=== PATIENT | female | born 1980 | race Caucasian/White ===

== ENCOUNTER → 2016-04-27 | Outpatient (CLI) | payer MEDICAID ==
--- NOTE | 2016-04-27 11:39 | DX ---
Left Foot - 3 Views Indication: Foot pain for 2 weeks. Technique: AP, oblique, and lateral views. Comparison: September 30, 2015. Findings: Soft tissue swelling along the lateral aspect of the fifth metatarsal and fifth metatarsoph alangeal joint has improved since September 2015. The bones of the foot are otherwise normal. No fracture, periosteal reaction or joint space narrowing. A benign punctate calcification along the medial aspec t of the medial sesamoid bone is unchanged. Impression: Negative. No evidence of stress fracture or arthropathy.
== END ==
LOC: BMCIMAGING 10:00
PROVIDERS: ATTEND Podiatrist Foot & Ankle Surgery
DX: M89.8X7 Other specified disorders of bone, ankle and foot (principal); M79.672 Pain in left foot

== ENCOUNTER 2016-09-26 22:43 | Emergency (ER) | payer MEDICAID ==
[2016-09-26 22:51] VITALS: BP 113/60; PULSE 65; RESP 16; TEMP 98.2; O2SAT 95
--- NOTE | 2016-09-26 23:19 | EDPHY ---
H & P <Roxane Sharma - Last Filed: 09/27/16 00:16> Stated Complaint: L leg pain Source: Patient Exam Limitations: No limitations - Personal History LMP (Females 10-55): Hysterectomy Current Tetanus/Diphtheria Vaccine: Yes Current Tetanus Diphtheria and Acellular Pertussis (TDAP): Yes - Medical/Surgical History Hx Asthma: Yes Hx Chronic Respiratory Disease: No Hx Diabetes: No Hx Cardiac Disease: No Hx Renal Disease: No Hx Cirrhosis: No Hx Alcoholism: No Hx HIV/AIDS: No Hx Splenectomy or Spleen Trauma: No Other PMH: hysterectomy, - Social History Smoking Status: Current every day smoker <BrodyHilario - Last Filed: 09/30/16 11:03> HPI/ROS: PHYSICIAN DOCUMENTATION: The patient was evaluated and managed by the Physician Consulting Application Engineer. My co- signature indicates that I have reviewed this chart and I agree with the findings and plan of care as documented. I am the secondary supervising physician. 12:15 a.m.- The patient was stable throughout my shift. DVT study was negative. I feel the patient has a cellulitis from a partially treated foot wound. I will give her an additional course of Augmentin as this helped her symptoms previously. She does have a history of C diff. I have encouraged her to take probiotics. I have discussed warning signs for worsening infection including redness, swelling , fever, pain. If she develops any of the symptoms she is to return to the emergency room or follow up with her primary care doctor. She is in agreement with the plan. (Roxane Sharma) CHIEF COMPLAINT: Left lower extremity erythema and pain HISTORY OF PRESENT ILLNESS: Patient complains of left lower extremity erythema edema pain. This started this morning. This involves the calf of the left leg. It is moderate to severe pain. Difficulty walking on it. It is warm to the touch to her. It is minimally improved with rest. No numbness or tingling. She reports a recent infection of the left lower foot, laterally. She finished a course of Augmentin last week for this. No recent travel or surgery. She has been moving recently. No previous incidence of venous thrombolic event. No other associated complaints or modifying factors. Primary care physician is Dr. Gabbie Machado REVIEW OF SYSTEMS: Ten systems reviewed and are negative unless otherwise noted in the HPI PAST MEDICAL HISTORY: Current right hip strain, left knee pain status post surgical repair in physical therapy FAMILY HISTORY: EXAMINATION General Appearance: Alert, no distress Head: normocephalic, atraumatic Eyes: Pupils equal and round, no conjunctival pallor or injection Respiratory: No retractions or distress. Cardiovascular: Regular rate. Pulses intact distally symmetrically with 2+ DP pulses and 2+ PT pulses. Gastrointestinal: Nondistended Neurological: A&O, nonfocal, antalgic but steady gait Skin: Warm and dry, no rash. There is mild erythema to the left calf. No lacerations or abrasions. There are varicosities of both lower extremities. There is a healing wound wound on the MTP joint of the left foot, laterally. No abscess, induration or erythema of the area. Extremities: Range of motion of the lower extremities is symmetric. There is mild edema and erythema to the left calf. No palpable cord. Negative Shayla. Neurovascular intact distal to the pain and swelling. Psychiatric: Mood and affect normal DIFFERENTIAL DIAGNOSES: Including but not limited to cellulitis, edema, DVT, rash MDM: 11:15 p.m. Left lower extremity erythema, edema pain. Patient is concerned of the possibility of cellulitis and deep vein thrombosis. I have ordered an ultrasound to rule out DVT. I have ordered laboratory studies for the possibility of cellulitis. Her vital signs were well within normal limits. There is excellent blood flow and she is neurovascular intact in the left lower extremity. Resting comfortably in no acute distress. 11:30 p.m. I have discussed the case with Dr. Sharma. DVT study is pending at this time. Laboratory studies are currently being drawn. She is resting comfortably in no acute distress. She is nontoxic and well-appearing. I suspect this is a early cellulitis versus possible DVT or superficial thrombus. She is in no acute distress with neurovascular intact extremities. At this time Dr. Sharma will assume care of the patient. Please see her note for final disposition. SUPERVISION: Patient was evaluated in conjunction with the supervising physician. Please see their note for details. (Hilario Skinner) Constitutional: Initial Vital Signs Temperature (C) 98.2 F 09/26/16 22:48 Heart Rate 65 09/26/16 22:48 Respiratory Rate 16 09/26/16 22:48 Blood Pressure 113/60 09/26/16 22:48 O2 Sat (%) 95 09/26/16 22:48 O2 Delivery Mode Room Air Allergies/Adverse Reactions: lidocaine Allergy (Verified 02/27/16 12:33) Other-Enter Comments shellfish derived Allergy (Verified 09/26/16 22:48) wheat Allergy (Verified 09/26/16 22:48) peanuts Allergy (Uncoded 09/26/16 22:48) Home Medications: Medication Instructions Recorded [place] 5/325 (*) 09/26/16 Amoxicillin/Clavulanate Pot 875 mg PO BID #14 tab 09/27/16 [Augmentin 875 MG TAB (*)] Medical Decision Making - Diagnostics Imaging: Discussed imaging studies w/ call center representative Radiologist, I viewed and interpreted images myself <Roxane Sharma - Last Filed: 09/27/16 00:16> Departure <Roxane Sharma - Last Filed: 09/27/16 00:16> <Hilario Skinner - Last Filed: 09/30/16 11:03> - Departure Disposition: Home, Routine, Self-Care Clinical Impression: Lower extremity pain, Varicose vein of leg, Cellulitis of leg Condition: Good Instructions: Varicose Veins (ED), Leg Edema (ED) Additional Instructions: 1. Follow up with primary care physician 2. Return to ER for worsening pain, redness or swelling 3. Return to the ER for any chest pain or shortness of breath 4. Medications as prescribed as discussed Referrals: Gabbie Machado MD [Primary Care Provider] - As per Instructions Prescriptions: Amoxicillin/Clavulanate Pot [Augmentin 875 MG TAB (*)] 875 mg PO BID #14 tab
[2016-09-26 23:42] LABS: % IMMATURE GRANULYOCYTES 0.5 % (0.0-1.1); ABSOLUTE IMMATURE GRANULOCYTES 0.04 10^3/uL (0.00-0.10); ADD DIFF? NO; ADD MORPH? NO; ADD SCAN? NO; ATYPICAL LYMPHOCYTE FLAG 30 (0-99); FRAGMENT RBC FLAG 0 (0-99); HEMATOCRIT 41.6 % (38.0-47.0); HEMOGLOBIN 14.2 g/dL (12.6-16.3); LEFT SHIFT FLG 0 (0-99); LIPEMIA HEMOLYSIS FLAG 90 (0-99); MEAN CELL HEMOGLOBIN 33.4 pg (27.9-34.1); MEAN CELL HEMOGLOBIN CONCENTR. 34.1 g/dL (32.4-36.7); MEAN CELL VOLUME 97.9 fL (81.5-99.8); MEAN PLATELET VOLUME 9.4 fL (8.7-11.7); PLATELET CLUMPS FLAG 0 (0-99); PLATELET COUNT 243 10^3/uL (150-400); RED BLOOD CELL COUNT 4.25 10^6/uL (4.18-5.33)
[2016-09-26 23:55] LABS: C-REACTIVE PROTEIN 10.9 mg/L (<10.0)
[2016-09-26 23:59] LABS: SEDIMENTATION RATE 0 MM/HR (0-20)
[2016-09-27] MEDS ORDERED: AMOXICILLIN/CLAVULANATE POT 875/125 MG TAB PO ONE (00:16)
[2016-09-27 00:33] LABS: CK-MB INTERPRETATION NEGATIVE (NEGATIVE)
[2016-09-27 00:35] LABS: CREATINE KINASE-MB FRACTION 6.05 ng/mL (0-3.19)
== END 2016-09-27 00:39 | disposition home or self-care (01) ==
DX: I83.92 Asymptomatic varicose veins of left lower extremity (principal); L03.116 Cellulitis of left lower limb; F17.200 Nicotine dependence, unspecified, uncomplicated; J45.909 Unspecified asthma, uncomplicated; Z91.010 Allergy to peanuts

== ENCOUNTER → 2016-10-03 | Outpatient (CLI) | payer MEDICAID | LOC: BMCIMAGING 08:49 | PROVIDERS: ATTEND Orthopaedic Surgery | DX: Z98.890 Other specified postprocedural states (principal) ==

== ENCOUNTER 2016-11-05 05:40 | Day surgery (SDC) | payer MEDICAID ==
[2016-11-05] MEDS ORDERED: LR 1,000 ML IV ONE (06:01)
[2016-11-05 06:12] VITALS: PULSE 60
[2016-11-05] MEDS ORDERED: BUPIVACAINE 0.5% 30 ML SDV ONE (06:46)
[2016-11-05] MEDS ORDERED: LIDOCAINE 2% 5 ML SDV ONE (06:47)
[2016-11-05] MEDS ORDERED: ceFAZolin 1 GM/5 ML SYR ONE (06:47)
[2016-11-05] MEDS ORDERED: fentaNYL 100 MCG/2 ML INJ ONE (07:02)
[2016-11-05] MEDS ORDERED: PROPOFOL 200 MG/20 ML VIAL ONE ×4 (07:02→07:59)
[2016-11-05] MEDS ORDERED: MIDAZOLAM 2 MG/2 ML VIAL IVP ONE (07:03)
--- NOTE | 2016-11-05 07:06 | PDANEPAE ---
ANE History of Present Illness 36 year old female presents for left bunionette surgery. ANE Past Medical History - Cardiovascular History Hx Hypertension: No Hx Arrhythmias: No Hx Chest Pain: No Hx Coronary Artery / Peripheral Vascular Disease: No Hx CHF / Valvular Disease: No Hx Palpitations: No - Pulmonary History Hx COPD: No Hx Asthma/Reactive Airway Disease: No Hx Recent Upper Respiratory Infection: No Hx Oxygen in Use at Home: No Hx Sleep Apnea: No - Neurologic History Hx Cerebrovascular Accident: No Hx Seizures: No Hx Dementia: No - Endocrine History Hx Diabetes: No Hypothyroid: No Hyperthyroid: No Obesity: no - Renal History Hx Renal Disorders: No Renal History Comment: DIFFICULTY EMPTYING BLADDER - Liver History Hx Hepatic Disorders: No - Neurological & Psychiatric Hx Hx Neurological and Psychiatric Disorders: Yes Neurological / Psychiatric History Comment: ANXIETY - Cancer History Hx Cancer: No - Congenital Disorder History Hx Congenital Disorders: No - GI History GERD: mild Hx Gastrointestinal Disorders: No Gastrointestinal History Comment: GI VOMITINGT - Other Health History Other Health History: WEARS GLASSES - Chronic Pain History Chronic Pain: Yes (BACK PAIN) - Surgical History Prior Surgeries: HYSTERECTOMY,BLADDER. REPAIR. REMVL LT OVARY 08/2014. CONOR HAND. DEVIATED SEPTUM. UMBILICAL HERNIA. X3. RT FOOT X2. LT KNEE SCOPE. RECTOCELE REPAIR. 12 HAND SURGERIES TOTAL ANE Review of Systems Review of systems is: negative - Exercise capacity Exercise capacity: >=4 METS ANE Patient History - Allergies Allergies/Adverse Reactions: lidocaine Allergy (Verified 02/27/16 12:33) Other-Enter Comments shellfish derived Allergy (Verified 09/26/16 22:48) wheat Allergy (Verified 09/26/16 22:48) peanuts Allergy (Uncoded 09/26/16 22:48) - Home Medications Home Medications: [place] 5/325 (*) 09/26/16 [Last Taken Unknown] - NPO status NPO Status: no food or drink >8 hours NPO Since - Liquids (Date): 11/04/16 NPO Since - Liquids (Time): 22:00 NPO Since - Solids (Date): 11/04/16 NPO Since - Solids (Time): 22:00 - Anes Hx Anes Hx: post operative nausea - Smoking Hx Smoking Status: Current every day smoker - Family Anes Hx Family Hx Anesthesia Complications: NONE ANE Labs/Vital Signs - Vital Signs Vital Signs: reviewed preoperatively; see RN documention for details Blood Pressure: 102/62 Heart Rate: 60 Respiratory Rate: 16 O2 Sat (%): 96 Height: 165.1 cm Weight: 67.261 kg ANE Physical Exam - Airway Neck exam: FROM Mallampati Score: Class 1 Mouth exam: normal dental/mouth exam - Pulmonary Pulmonary: no respiratory distress - Cardiovascular Cardiovascular: regular rate and rhythym - ASA Status ASA Status: II ANE Anesthesia Plan Anesthesia Plan: GA w LMA, GA with mask
[2016-11-05] MEDS ORDERED: DEXAMETHASONE 4 MG/ML VIAL ONE (07:11)
[2016-11-05] MEDS ORDERED: ceFAZolin 2 GM/DEXTROSE 100 ML IV ONE (07:11)
[2016-11-05] MEDS ORDERED: ONDANSETRON 4 MG/2 ML VIAL ONE (07:11)
[2016-11-05] MEDS ORDERED: SCOPOLAMINE HYDROBROMIDE 1.5 MG PATCH TD SCH (07:15)
[2016-11-05] MEDS ORDERED: ONDANSETRON 4 MG/2 ML VIAL IVP PRN ×2 (07:50→08:36)
[2016-11-05] MEDS ORDERED: fentaNYL 100 MCG/2 ML INJ IVP PRN (07:50)
[2016-11-05] MEDS ORDERED: OXYCODONE/APAP 5/325 TAB PO PRN ×2 (07:50→08:36)
[2016-11-05] MEDS ORDERED: NALOXONE HCL 0.4 MG/ML INJ IVP PRN (07:50)
[2016-11-05] MEDS ORDERED: LR 500 ML IV PRN (07:50)
[2016-11-05] MEDS ORDERED: ONDANSETRON DISINTEGRATING 4 MG TAB PO PRN (08:36)
[2016-11-05 08:45] VITALS: TEMP 97.9
[2016-11-05] MEDS ORDERED: OXYCODONE/APAP 5/325 TAB ONE (09:17)
[2016-11-05 09:21] VITALS: RESP 18
--- NOTE | 2016-11-05 09:34 | GOP ---
[f rep st] OPERATIVE REPORT DATE OF OPERATION: 11/05/2016 SURGEON: Brent Winchester DPM CREDIT AND LOAN COLLECTIONS SUPERVISOR: None. ANESTHESIA: IV general. PREOPERATIVE DIAGNOSIS: 1. Left foot tailor's bunion. 2. Exostosis proximal phalanx left hallux. POSTOPERATIVE DIAGNOSIS: 1. Left foot tailor's bunion. 2. Exostosis proximal phalanx left hallux. 3. Bursa left foot. PROCEDURE PERFORMED: FINDINGS: SPECIMENS: Swab cultures were sent following multiple infections to the area. ESTIMATED BLOOD LOSS: Scant. INDICATIONS: The patient is a relatively healthy 36-year-old woman, who has presented to my office multiple times for left foot pain at the tailor's bunion. Of recent, she has had fissuring and aircraft maintenance engineer cking from the prominence in the lateral foot, this has become infected. The patient would like to have the underlying bony prominence removed. The patient understands the risks, benefits, and alter natives and wishes to proceed with the procedure. DESCRIPTION OF PROCEDURE: Under mild sedation, the patient was brought into the operating room, augusto don on the operating table in a supine position. Following further IV sedation, the patient was giv en a regional foot block surrounding the left forefoot, which was 29 cc of 0.5% Marcaine plain. The foot was then scrubbed, prepped, and draped in the usual aseptic manner. A sterile pneumatic tourn iquet was placed about the patient's well-padded supramalleolar area of the left lower extremity. A n Esmarch bandage was utilized to exsanguinate the patient's left foot and the tourniquet was inflat ed to 250 mmHg. Attention was then directed to the dorsal lateral aspect overlying the 5th metatarsal head of the le ft foot, where a 3 cm linear longitudinal incision was made in line with the axis of the 5th metatar marla. The incision was deepened via sharp and blunt dissection, care being taken to identify and ret ract all vital, neural, and vascular structures. All bleeders were ligated and cauterized as necess renato. A periosteal and capsular incision was made in line with the skin incision, and the 5th metata rsal head was immediately identified. Utilizing a sagittal saw, the lateral prominence of the 5th m etatarsal head was resected and passed from the operative field. The plantar lateral aspect of the patient's 5th metatarsal head was also resected to further decrease the plantar lateral pressure. T he wound was flushed with copious amounts of sterile normal saline. The periosteum capsular structu res were sutured closed with 2-0 Vicryl. At this time, the large bursal sac which was extracapsular and subcutaneous was resected, passed from the operative field. Clinically, the volume underneath the skin was markedly decreased. Subcutaneous tissues were reapproximated with a 3-0 Vicryl suture and the skin was reapproximated with a running baseball-type suture of 4-0 Prolene. Attention was t hen directed to the area overlying the 1st metatarsophalangeal joint, immediately lateral to the ten don of extensor hallucis longus. A 2 cm incision was made in line with the tendon. It was deepened via sharp and blunt dissection, care being taken to identify and retract all vital, neural, and vas cular structures. All bleeders were ligated and cauterized as necessary. The tendon of extensor walden llucis longus was immediately identified overlying a small exostosis at the dorsal base of the proxi mal phalanx of the left hallux. There was already some wear within the tendon itself. The exostosi s beneath it was removed with a rongeur and smoothed with a rasp. The tearing of the tendon of exte nsor hallucis longus was repaired with a 2-0 Vicryl, and the wound was flushed with copious amounts of sterile normal saline. The wound was closed in layers with 2-0 Vicryl, 3-0 Vicryl, and the skin was closed with a running baseball-type suture of 4-0 Prolene. The wounds were dressed with Xerofor m and a sterile compressive dressing consisting of 4x4s and Lanie. The tourniquet was dropped and a prompt hyperemic response was noted to all digits of left foot. The foot was then wrapped in an Ac e bandage. The patient tolerated the procedure and anesthesia well. She was transferred to the rec overy room with vital signs stable and vascular status intact to all digits of the left foot. Follo wing a period of postoperative monitoring, the patient will be discharged home with the following wr itten and oral postoperative instructions. 1. Keep dressing clean, dry, and intact. 2. Use caution while taking pain medication. 3. Ice and elevate as instructed. 4. All followup questions and concerns should be directed toward [facility] at [phone]. HEMOSTASIS: A pneumatic ankle tourniquet to the left ankle at 200 mmHg x34 minutes. MATERIALS: None. INJECTABLES: 29 cc of 0.5% Marcaine plain. COMPLICATIONS: None. /[id number]/MODL
[2016-11-05 09:35] VITALS: BP 94/65; O2SAT 98
--- NOTE | 2016-11-05 10:40 | POSTANESTH ---
Post Anesthetic Evaluation Cardiovascular Status: Normal, Stable Respiratory Status: Normal, Stable Level of Consciousness/Mental Status: Can Participate in Eval Pain Control: Adequate, Prn Tx Ordered Nausea/Vomiting Control: Adequate, Prn Tx Ordered Complications Possibly Related to Anesthesia: None Noted
== END 2016-11-05 09:45 | disposition home or self-care (01) ==
LOC: FSGY 05:40
PROVIDERS: ATTEND Podiatrist Foot & Ankle Surgery
DX: M21.622 Bunionette of left foot (principal); M89.272 Other disorders of bone development and growth, left ankle and foot
CPT/HCPCS: J1100; J2250; J2405; J2704; J3010

== ENCOUNTER → 2016-12-18 | Outpatient (CLI) | payer MEDICAID | LOC: BMCIMAGING 09:52 | PROVIDERS: ATTEND Orthopaedic Surgery Hand Surgery | DX: M25.531 Pain in right wrist (principal); M85.441 Solitary bone cyst, right hand ==

== ENCOUNTER → 2017-01-04 | Outpatient (CLI) | payer MEDICAID | LOC: BMCIMAGING 14:21 | PROVIDERS: ATTEND Orthopaedic Surgery Hand Surgery | DX: M79.641 Pain in right hand (principal) ==

== ENCOUNTER → 2017-01-30 | Outpatient (CLI) | payer MEDICAID | LOC: BMCIMAGING 12:17 | PROVIDERS: ATTEND Physician Assistant | DX: R05 Cough (principal); R49.0 Dysphonia; F17.200 Nicotine dependence, unspecified, uncomplicated ==

== ENCOUNTER 2017-12-21 22:21 | Emergency (ER) | payer MEDICAID ==
[2017-12-21 22:28] VITALS: BP 112/61
--- NOTE | 2017-12-21 22:56 | EDPHY ---
H & P Smoking Status: Current every day smoker Time Seen by Provider: 12/21/17 22:48 HPI/ROS: CHIEF COMPLAINT: Possible spider bite HISTORY OF PRESENT ILLNESS: The patient reports possible spider bite to the right upper extremity. She states she was working in the [employer] today and felt some tingling sensation to her arm and then noted an area of swelling. She denies any chest pain, shortness of breath, tongue swelling, history of anaphylaxis. She denies fever or chills. ROS As detailed in HPI (Perez Sierra) Physical Exam: General: Alert and oriented. Nontoxic appearing. No acute distress HEENT: Pupils PERRLA. No oral lesions. Cardiopulmonary: Regular rate and rhythm. No lower extremity edema Skin: [place] warm and dry. No lesions. Muscle skeletal: Moving all 4 extremities. Equal strength in upper extremities and lower extremities. Ambulatory. (Perez Sierra) Constitutional: Initial Vital Signs Temperature (C) 37.3 C 12/21/17 22:25 Heart Rate 89 12/21/17 22:25 Respiratory Rate 16 12/21/17 22:25 Blood Pressure 112/61 12/21/17 22:25 O2 Sat (%) 96 12/21/17 22:25 Allergies/Adverse Reactions: lidocaine Allergy (Verified 02/27/16 12:33) Other-Enter Comments shellfish derived Allergy (Verified 09/26/16 22:48) soy Allergy (Verified 12/21/17 22:23) wheat Allergy (Verified 09/26/16 22:48) peanuts Allergy (Uncoded 09/26/16 22:48) Home Medications: Medication Instructions Recorded NK [No Known Home Meds] 12/21/17 Medical Decision Making ED Course/Re-evaluation: Patient here with possible an insect versus spider bite. There is no evidence of anaphylaxis or DVT or abscess. She was reassured and declined any pain medication. (Perez Sierra) PHYSICIAN DOCUMENTATION: The patient was evaluated and managed by the Physician Pharmacy Cashier. My co- signature indicates that I have reviewed this chart and I agree with the findings and plan of care as documented. I am the secondary supervising physician. (Roxane Sharma) Departure - Departure Disposition: Home, Routine, Self-Care Clinical Impression: Insect bite Condition: Good Instructions: Insect Bite or Sting (ED) Referrals: Gabbie Machado MD [Primary Care Provider] - As per Instructions
== END 2017-12-21 23:12 | disposition home or self-care (01) ==
DX: S40.861A Insect bite (nonvenomous) of right upper arm, initial encounter (principal)